=== PATIENT | male | born 1960 | race Caucasian/White ===

== ENCOUNTER 2016-07-05 06:51 | Emergency (ER) | payer SELFPAY ==
[~2016-07-05] VITALS: Ht 154.9 cm; Wt 60.1 kg
[~2016-07-05 06:51] MED LIST: CIPR-9 PO; IBUP-232 PO
[2016-07-05 07:02] VITALS: BP 130/89; PULSE 107; RESP 16; TEMP 98.8; O2SAT 99
[2016-07-05] MEDS ORDERED: oxyCODONE/ACETAMINOPHEN 5 MG/325 MG TAB PO ONE (08:15)
--- NOTE | 2016-07-05 09:14 | PD ---
HPI Chief Complaint: Pain: Acute or Chronic Time Seen by Provider: 08:02 Travel History International Travel<30 days: No Contact w/Intl Traveler<30days: No Traveled to known affect area: No History of Present Illness HPI Patient is a 55 year old male presents to the emergency department for evaluation of pain in all four extremities. Patient states 4 days ago he started with right ankle pain numbness and tingling. He stated that this progressed to left ankle numbness and tingling and then radiated up his legs and then into his hands. States it's so bad he cannot walk. Patient denies any focal weakness, trauma, fever, rash, back pain. PFSH Past Medical History Hx Anticoagulant Therapy: No Arthritis: Yes Cardiovascular Problems: Yes (hx of Htn takes no meds) Cirrhosis: Yes COPD: Yes Diabetes: No Diminished Hearing: No GERD: Yes Hypertension: Yes Respiratory: Yes (COPD) Tetanus Vaccination: < 5 Years Past Surgical History Abdominal Surgery: Yes (REPAIR OF LACERATED LIVER IN ) Tonsillectomy: Yes Other Surgery: Yes (liver laceration repair and repair to left wrist (tendons) ) Social History Alcohol Use: Yes (occasional beer) Tobacco Use: Yes Substance Use: No Allergies-Medications (Allergen,Severity, Reaction): Coded Allergies: Iodine (Verified Allergy, Severe, PT DENIES ALLERGY, 07/05/16) Penicillin (Verified Allergy, Severe, UNKNOWN, 07/05/16) Reported Meds & Prescriptions Reported Meds & Active Scripts Active Ultram (Tramadol HCl) 50 Mg Tab 50 Mg PO Q6H PRN Walker/Adult/Folding (Device) 1 Mis Mis 1 Ea .ROUTE DIRECTED Review of Systems Except as stated in HPI: all other systems reviewed are Neg Physical Exam Narrative GENERAL: WD/WN in nad. SKIN: Warm and dry. HEAD: Atraumatic. Normocephalic. EYES: Pupils equal and round. No scleral icterus. No injection or drainage. ENT: No nasal bleeding or discharge. Mucous membranes pink and moist. NECK: Trachea midline. No JVD. CARDIOVASCULAR: Regular rate and rhythm. RESPIRATORY: No accessory muscle use. Clear to auscultation. Breath sounds equal bilaterally. GASTROINTESTINAL: Abdomen soft, non-tender, nondistended. Hepatic and splenic margins not palpable. MUSCULOSKELETAL: Extremities without clubbing, cyanosis, or edema. No obvious deformities. Patient has pain out of proportion to physical exam findings when, palpating his bilateral ankles the lightest touch creates extreme pain. There is no swelling, bruising, wound, or deformity of either lower extremity. COmpartments are soft. PMS intact in all four extremities. NEUROLOGICAL: Awake and alert. No obvious cranial nerve deficits. 5/5 strength in all four extremities in all muscle groups of bilateral lower and bilateral upper extremities. PSYCHIATRIC: Appropriate mood and affect; insight and judgment normal. Data Data Last Documented VS Vital Signs Date Time Temp Pulse Resp B/P Pulse Ox O2 Delivery O2 Flow Rate FiO2 07/05/16 07:02 98.8 107 16 130/89 99 Orders Oxycodone-Acetamin 5-325 Mg (Percocet (07/05/16 08:15) MDM Medical Decision Making Medical Screen Exam Complete: Yes Emergency Medical Condition: Yes Differential Diagnosis Neuropathy, extremity pain, malingering. Narrative Course Patient roomed in ED. He volunteers that if he cant walk he needs to be admitted for evaluation. Patient has no physical exam findings that suggest a unifying diagnosis. There is no spinal cord syndrome, no traumatic injury, no evidence of cauda equina. His symptoms suggest neurologic cause. He appears well and in nad. He is able to ambulate albeit with a walker in the ED. has no indication for emergent workup and is stable to pursue is extremity pain as an outpatient. Discharge to self care with walker. Diagnosis Primary Impression: Numbness and tingling of right leg Referrals: Ronda Holliday MD Med/Other Pt SpecificInfo: Prescription(s) given Scripts Tramadol (Ultram)50 Mg Tab50 Mg PO Q6H PRN (PAIN) #15 TAB Ref 0 Prov:Ayad Lombardi MD 07/05/16 Walker/Adult/Folding 1 Mis Mis #1 EA .ROUTE DIRECTED Ref 0 Prov:Ayad Lombardi MD 07/05/16 Disposition: 01 DISCHARGE HOME Condition: Stable Ayad Lombardi MD Jul 05, 2016 09:14
[2016-07-05] MEDS ORDERED: ULTR50TA5 PO (09:28)
[2016-07-05] MEDS ORDERED: WALKER/ADULT/FO1 MIS (09:28)
== END 2016-07-05 09:40 | disposition home or self-care (01) ==
LOC: PHED 06:51 → PHEFT 09:40
DX: R20.0 Anesthesia of skin (principal); R20.2 Paresthesia of skin; M79.604 Pain in right leg; M79.605 Pain in left leg; M79.601 Pain in right arm; M79.602 Pain in left arm; I10 Essential (primary) hypertension; Z72.0 Tobacco use; Z87.39 Personal history of other diseases of the musculoskeletal system and connective tissue; Z87.19 Personal history of other diseases of the digestive system; Z87.09 Personal history of other diseases of the respiratory system
CPT/HCPCS: 99283